=== PATIENT | female | born 1945 | race Caucasian/White ===

== ENCOUNTER 2016-09-25 22:02 | Emergency (ER) | payer MEDICARE ==
[~2016-09-25] VITALS: Ht 160 cm; Wt 90.7 kg
[~2016-09-25 22:02] MED LIST: CYCLOBENZ5 MG PO; FLEXERIL5 MG PO; HYDROCHLOROTH12.5 M1 PO; K-DUR 20MEQ TA20 MEQ PO; LEVOTHYROXINE0.05 MG NG; LISINOPRIL20 MG PO; MAXZIDE 25 MG-31 TAB PO; MELOXICAM15 MG PO; OMEPRAZOLE20 MG PO; RANITIDINE HCL300 M1 PO; RANITIDINE150 M1 PO; TRAMADOL50 M1 PO; VERAPAMIL SR 1180 MG PO; VERAPAMIL SR 2240 MG PO; VICOPROFEN 2001 EACH PO; ZEGERID 40 MG-11 CAP PO; ZOLPIDEM 10MG T10 MG PO
[2016-09-25] MEDS ORDERED: DICLOFENAC SODI75 M2 PO (22:15)
--- OUTSIDE RECORDS SUMMARY | 2016-09-25 22:18 | External Medical Summary Rpt ---
Author Author [employer] Organization [employer] Address Unknown Phone Unavailable Purpose Continuity of Care Document - through 2016
--- OUTSIDE RECORDS SUMMARY | 2016-09-25 22:18 | External Medical Summary Rpt ---
Author Author , Organization [employer] Address Unknown Phone Unavailable Purpose Continuity of Care Document - through 2016
--- OUTSIDE RECORDS SUMMARY | 2016-09-25 22:19 | External Medical Summary Rpt ---
Author Author , Organization [employer] Address Unknown Phone Unavailable Purpose Continuity of Care Document - 03-26-2015 through 2016 Immunization Name Date Route CVX Reacti Commen Provid Is Given on t er Refuse d Influe 135 Histor WALMAR No nza, 2014 uscula ical T591 High r Inform Dose ation - Source Unspec ified
[2016-09-25 22:51] LABS: STREP SCREEN (RAPID) NEGATIVE
[2016-09-25 22:55] LABS: HEMOGLOBIN 12.7 g/dL (12.2-16.2); LYMPH # 1.6 K/mm3 (0.7-4.5); LYMPH % 13.8 % (10-50.0)
--- NOTE | 2016-09-25 23:42 | Emergency Room Report ---
History of Present Illness Time Seen by [id number] Presenting Problem in Triage Pt arrived:Walked Presenting Problem:c/o sore throat x 1 week and now feels like throat closing off morenita like a spasm. C/o headache and cough Onset of symptoms date/time:/ or onset unknown for:MEDICAL HX UNKNOWN Treatment Prior to Arrival: SANITATION TECHNICIAN Provided by: Sepsis Risk Assessment: Temp: 98.8 B/P: 160/95 MAP: 112 Pulse: 87 Resp: 20 Recent fever? N Clinical Suspician of Infection? Y Mental Status: 1 - Regular (Normal Baseline) Sepsis Risk:Low Sepsis Risk Have you (or family members/close friends) recently traveled outside the [place]? N If Yes, where/when: Have you had exposure to infectious disease within the past month? N TB? Other? Specify: Source patient, RN notes reviewed, family, old records Exam Limitations no limitations Comment progressive sob with sore throat w/o cough or rash over the last 2 days Cardiac Chest Pain Chest pain indicative of cardiac No Timing/Duration this evening Severity moderate ALLERGIES Coded Allergies: codeine (NA-NAUSEA/VOMITING 08/28/16) Uncoded Allergies: SOLAREZGEL (S-BLISTERING WELTS 08/28/16) Home Medications Reported Medications VERAPAMIL HCL (Verapamil ER) 180 MG PO BID Zolpidem Tartrate (Zolpidem 10MG) 10 MG PO QHS Hydrochlorothiazide W/Triamter (Triamterene-Hctz 37.5-25 MG Tb) 1 TAB PO DAILY POTASSIUM CHL (Potassium Chloride) 20 MEQ PO BID Diclofenac Sodium 75 MG PO BID #60 Levothyroxine Sodium (Levothyroxine) 0.05 MG NG DAILY 90 Days Lisinopril 20 MG PO BID #180 TAB Omeprazole (Omeprazole 20MG) 20 MG PO BID #180 ECC History Medical History General CAD? No Angina: No [place]: No Hypertension? Yes Hyperlipidemia? No CHF? No DVT? No PE? No COPD? No Asthma? No Anemia? No GERD? Yes Gastric ulcers? No GI Bleed? No Hernia? No Thyroid Problems? Yes Hypothyroidism? Yes CVA? No Seizures? No Diabetes? No End Stage Renal Disease? No UTI? No Stones? No BPH? No GB Disease: Yes Nephritic Syndrome? No Asplenia? No Hepatitis? No Sickle Cell Disease? No Arthritis? Yes Migraines? No Cataracts? No Glaucoma? No MRSA? No HIV? No TB? No Anxiety? No Depression? No Cancer? No Immunization Hx DT/Tetanus 1-4 YRS Flu NEVER Pneumonia Never Had Surgical Hx Previous Surgery?Y MILENA Gallbladd BARNEY. FEET COMP FX LT WRIST 09/13 Family History Family Hx Diabetes No CAD No Hypertension Yes Hyperlipidemia No Cancer Yes TB No Social History Smoking Hx Smoker: Never Smoker Tobacco: No Alcohol Alcohol: No Drugs none Review of Systems All Other Systems Reviewed and Negative Constitutional denies fever Eyes denies drainage ENT throat pain, throat swelling. denies: ear pain, epistaxis, tongue swelling. Respiratory denies cough Cardiovascular denies chest pain, denies syncope Gastrointestinal denies abdominal pain, denies vomiting Genitourinary denies: dysuria, frequency, hesitancy. Musculoskeletal denies back pain, denies joint pain, denies neck pain Skin denies rash Psychiatric/Neurological denies headache, denies seizure Physical Exam Vital Signs Vital Signs Date Time Temp Pulse Resp B/P Pulse O2 O2 Flow FiO2 Ox Delivery Rate 09/25 2308 87 20 160/95 96 09/25 2232 87 20 158/78 96 09/25 2205 98.8 87 20 160/89 96 - WBC >12,000 or <4,000 or 10% bands? 2 or more SIRS Criteria Met? B/P:160/95 MAP:112 Creatinine >2.0? UA output<0.5ml/kg/hr for 2 hrs? Platelet count >100,000? Lactate >2.0mmol/1? INR >1.2 or PTT > than 60 sec? Evidence of Organ Dysfunction? Provider documented clinical suspician of infection? Y Sepsis Criteria Count: 1 Sepsis Risk: Low Sepsis Risk General Appearance no apparent distress Eye Exam - bilateral eye PERRL, bilateral eye EOMI Ear, Nose, Throat pharyngeal erythema Neck supple Respiratory Status No: respiratory distress. Lung Sounds bilateral: lungs clear. Cardiovascular regular rate/rhythm, systolic murmur Peripheral Pulses Pulses normal Yes Gastrointestinal soft Extremities normal inspection Strength 4 Upper Ext (L), 4 Upper Ext (R), 4 Lower Ext (L), 4 Lower Ext (R) Neurologic alert, respiratory therapy director II-XII nml as tested, no motor/sensory deficits Reflexes Reflexes normal No Mental status normal mood/affect Skin intact Medical Decision Making LABS/Meds/Orders Pt receiving controlled substance in ED? No Results/Orders Laboratory Tests 09/25/162226: Sodium 142, Potassium 4.4, Chloride 108 H, Carbon Dioxide 25, BUN 25 H, Creatinine 1.6 H, Estimated Creat Clear 48 L, Estimated GFR (MDRD) 32 L, Glucose 135 H, Calcium 8.8, Total Bilirubin 0.2, AST 8 L, ALT 27, Alkaline Phosphatase 124 H, Total Protein 7.6, Albumin 3.5, Globulin 4.1 H, Albumin/ Globulin Ratio 0.9 L, WBC 11.3 H, RBC 4.33, Hgb 12.7, Hct 39.5, MCV 91.1, RDW 14.1, Plt Count 231, MPV 7.7, Gran % 78.4, Gran # 8.8 H, Lymphocytes % 13.8, Monocytes % 4.7, Eosinophils % 2.8, Basophils % 0.4, Lymphocytes # 1.6, Monocytes # 0.5, Eosinophils # 0.3, Basophils # 0.0, PUBS MCHC 32.0, MCH 29.2, Influenza Type A Ag NOT DETECTED, Influenza Type B Ag NOT DETECTED Current Medication Orders Sig/Thierry Start time Last Medication Dose Route Stop Time Status Admin Ceftriaxone Sodium 0 .STK-MED ONE 09/25 2345 DC IV Methylprednisolone 0 .STK-MED ONE 09/25 2345 DC Sodium Succinate .ROUTE Sodium Chloride 50 ML .STK-MED ONE 09/25 2345 DC IV Ceftriaxone Sodium 1 GM ONCE ONE 09/25 2344 DC 09/25 Sodium Chloride 50 ML IV 09/26 0014 2348 Methylprednisolone 125 MG ONCE ONE 09/25 2344 DC 09/25 Sodium Succinate IV 09/25 Sodium Chloride 10 ML PRN PRN 09/25 223 AC IV 09/26 2216 Orders Procedure Date/time Status CULTURE, THROAT 09/25 2226 Active CHEST(2 VIEWS-NOT PORTABLE) 09/25 2216 Active IV SALINE LOCK 09/25 2216 Active STREP SCREEN THROAT 09/25 2216 Complete INFLUENZA A&B ANTIGENS 09/25 2216 Complete CBC WITH AUTO DIFF 09/25 2216 Complete CHEM 12 PROFILE 09/25 2216 Complete XRAY/CT/US XRAY/CT/US XRAY chest XR interpretation by reviewed by me Xray Results normal/NAD Departure Departure Time of Disposition 2341 Disposition DC Home or Self Care(routine) Clinical Impression Primary Impression: Pharyngitis Qualifiers: Pharyngitis/tonsillitis etiology: unspecified etiology Qualified Code: J02.9 - Acute pharyngitis, unspecified Condition STABLE Patient Instructions DI for Pharyngitis/Tonsillopharyngitis -- Adult Additional Instructions use meds and see pcp for follow up Discharge Counseling Counseled pt/family regarding diagnosis, test results, medications/RX, follow up needs Prescriptions Current Visit Scripts CEPHALEXIN (Keflex 500MG Capsule) 500 MG PO Q8H #21 CAP Prednisone (Prednisone 20MG) 20 MG PO BID #10 TAB ED Critical Care Critical Care No at 0028
[2016-09-26] MEDS ORDERED: PREDNISONE 20MG20 MG PO (00:28)
[2016-09-26] MEDS ORDERED: KEFLEX 500MG.500 MG PO (00:28)
[2016-09-26 00:32] VITALS: BP 160/95
--- NOTE | 2016-09-26 08:23 | RADIOLOGY REPORT PS360 ---
CHEST(2 VIEWS-NOT PORTABLE) COMPARISON: PA and lateral chest 04/13/2015 HISTORY: Persistent cough TECHNIQUE: PA and lateral chest FINDINGS: The lung villalobos are fairly well-expanded and appear clear of infiltrate. Radial minimal atelectasis at the left base. There is mild to moderate generalized cardiomegaly without evidence of failure. There are old healed rib fractures right side. There are minor degenerative changes of the thoracic spine. IMPRESSION: Cardio megaly, question minimal left basilar atelectasis
== END 2016-09-26 00:33 | disposition home or self-care (01) ==
LOC: ER 22:02
PROVIDERS: Emergency Medicine
DX: J02.9 Acute pharyngitis, unspecified (principal); I10 Essential (primary) hypertension; K21.9 Gastro-esophageal reflux disease without esophagitis

== ENCOUNTER → 2017-03-03 | Outpatient (CLI) | payer MEDICARE ==
[~2017-03-03] MED LIST changes: +DICLOFENAC SODI75 M2 PO; +KEFLEX 500MG.500 MG PO; +PREDNISONE 20MG20 MG PO
--- NOTE | 2017-03-03 14:35 | RADIOLOGY REPORT PS360 ---
FEMUR-LT-2 VIEWS COMPARISON: None HISTORY: Left thigh pain TECHNIQUE: AP lateral and oblique views FINDINGS: The femoral head and neck appear intact and the femoral shaft is intact. There is joint space narrowing medially of the knee with narrowing of the patellofemoral space as well. There is no definite fracture or loose body. The soft tissues of the thigh are normal. IMPRESSION: Negative left femur,, mild to moderate degenerative change of the knee
== END ==
LOC: RAD 11:16
DX: M79.605 Pain in left leg (principal)

== ENCOUNTER → 2017-03-05 | Outpatient (CLI) | payer MEDICARE ==
--- NOTE | 2017-03-05 14:42 | CARDIOVASCULAR REPORT ---
"Venous Exam Indications: 729.5 Pain in limb. IMPRESSIONS 1. There is no evidence of significant Reflux. 2. No evidence of deep or superficial vein thrombosis involving the left lower extremity History: Left lower extremity pain. Risk factors: Hypertension. Obese. Labs, prior tests, procedures, and surgery: Right knee joint prosthesis. Labs, prior tests, procedures, and surgery: Right knee joint prosthesis. Left lower extremity venous duplex evaluation. Doppler flow study including spectral analysis, color and ceballos scale imaging. Location: Vascular laboratory. Patient status: Outpatient. CRITICAL FINDINGS - Reported to: WILMER Plunkett - Read back and verified. - 03/05/17 - 14:40 - LLE negative for DVT or SVT Tables: Venous flow and imaging: + +-------+ + |Location |Overall|Flow properties | + +-------+ + |Left common femoral |Patent |Normal phasicity; spontaneous; | | | |normal augmentation; compressible | + +-------+ + |Left saphenofemoral junction|Patent |Compressible | + +-------+ + |Left profunda femoral |Patent |Compressible | + +-------+ + |Left femoral |Patent |Normal phasicity; spontaneous; | | | |normal augmentation; compressible | + +-------+ + |Left greater saphenous |Patent |Normal phasicity; spontaneous; | | | |normal augmentation; compressible | + +-------+ + |Left popliteal |Patent |Normal phasicity; spontaneous; | | | |normal augmentation; compressible | + +-------+ + |Left posterior tibial |Patent |Compressible | + +-------+ + |Left peroneal |Patent |Compressible | + +-------+ + |Left gastrocnemius |Patent |Compressible | + +-------+ + |Left soleal |Patent |Compressible | + +-------+ + (Report amended ) Electronically signed by: Guilherme Oropeza [id number]"
== END ==
LOC: RT 14:01
DX: M79.605 Pain in left leg (principal)

== ENCOUNTER → 2017-03-08 | Outpatient (CLI) | payer MEDICARE ==
[2017-03-08 13:53] LABS: BUN 42 mg/dL (7-18)
[2017-03-08 13:54] LABS: GFR (ESTIMATED) 30 ML/MIN (59-)
[2017-03-08 14:21] LABS: HEMOGLOBIN 12.7 g/dL (12.2-16.2); LYMPH % 18.3 % (10-50.0)
== END ==
LOC: CARL-LAB 10:30
PROVIDERS: Internal Medicine Adolescent Medicine
DX: M79.605 Pain in left leg (principal)